=== PATIENT | female | born 1955 | race African-American/Black ===

== ENCOUNTER 2019-01-02 05:58 | Day surgery (SDC) | payer BC ==
[2018-12-29 12:03] VITALS: BMI 33.6
[2019-01-02] MEDS ORDERED: MIDAZOLAM HCL 2 MG/2 ML SINGLE DOSE VIAL ONE (07:09)
[2019-01-02] MEDS ORDERED: ePHEDrine SULFATE 50 MG/1 ML AMPULE ONE (07:09)
[2019-01-02] MEDS ORDERED: PROPOFOL 20 ML ONE ×4 (07:09)
[2019-01-02] MEDS ORDERED: SUCCINYLCHOLINE CHLORIDE 200 MG/10 ML VIAL ONE (07:09)
[2019-01-02] MEDS ORDERED: LIDOCAINE 1% P/F 10 MG/ML VIAL ONE (07:45)
[2019-01-02] MEDS ORDERED: BUPIVACAINE HCL/PF 2.5 MG/ML - 30 ML VIAL IJ ONE (07:45)
[2019-01-02] MEDS ORDERED: LIDOCAINE HCL 1% PRESERVATIVE FREE - 30ML VIAL ONE (07:46)
[2019-01-02] MEDS ORDERED: ceFAZolin SODIUM 1 GM VIAL IVPB ONE (08:15)
[2019-01-02] MEDS ORDERED: BUPIVACAINE HCL/PF (5 MG/ML) 30 ML VIAL IJ ONE (08:28)
[2019-01-02] MEDS ORDERED: BUPIVACAINE HCL/PF 0.25% (2.5MG/ML) 10 ML VIAL IJ ONE (08:28)
[2019-01-02] MEDS ORDERED: LIDOCAINE HCL 1%, 10 MG/ML (50 mL VIAL) IJ ONE ×2 (08:46)
[2019-01-02 09:53] VITALS: BP 137/86; PULSE 65; TEMP 98.4
[2019-01-02] MEDS ORDERED: ONDANSETRON 4 MG/2 ML VIAL IVPUSH PRN (14:10)
[2019-01-02] MEDS ORDERED: oxyCODONE HCL 5 MG TABLET PO PRN ×2 (14:10)
[2019-01-02] MEDS ORDERED: LACTATED RINGERS SOLUTION 1,000 ML IV SCH (14:15)
--- NOTE | 2019-01-03 09:01 | OP ---
DATE OF OPERATION: 01/02/2019 SURGEON: Rachel Glynn MD ASSISSTANT: JAVIER Tomas PREOPERATIVE DIAGNOSIS: Left carpal tunnel syndrome. POSTOPERATIVE DIAGNOSIS: Left carpal tunnel syndrome. PROCEDURE: Left carpal tunnel release (CBT code 25048). FINDINGS: transcarpal ligament impinging upon the median nerve. DESCRIPTION OF PROCEDURE: Under sterile conditions, the upper extremity was prepped and draped in a sterile fashion. Incision was made along the longitudinal portion of the carpal tunnel. A longitudinal incision was made along the proximal portion of the palm, following the palm crease. This was taken down to the transcarpal ligament, which was released initially with scalpel and then extended proximally and distally using blunt tenotomy scissors. The median nerve was identified and completely released from impingement by the transcarpal ligament. The wound was then irrigated with copious amounts of irrigation. Skin was closed with 5-0 nylon in single interrupted sutures. The PA listed above was present and assisted at surgery. Their presence was absolutely medically necessary for the completion of the procedure. They helped hold the arthroscopy, pass instruments (and implants when indicated) and the procedure could not have been completed without their assistance. RACHEL GLYNN M.D. [id number]
== END 2019-01-02 09:45 | disposition home or self-care (01) ==
LOC: FASU 05:58
PROVIDERS: ATTEND Orthopaedic Surgery
PROC: 01N50ZZ Release Median Nerve, Open Approach (ICD-10-PCS; principal; 2019-01-02 07:30)
DX: G56.02 Carpal tunnel syndrome, left upper limb (principal)

== ENCOUNTER 2019-06-04 07:20 | Day surgery (SDC) | payer BC ==
[2019-06-01 11:36] VITALS: BMI 33.6
[2019-06-04] MEDS ORDERED: BUPIVACAINE HCL/PF 2.5 MG/ML - 30 ML VIAL IJ ONE (09:38)
[2019-06-04] MEDS ORDERED: DEXAMETHASONE SOD PHOSPHATE 4 MG/1 ML VIAL ONE (09:50)
[2019-06-04] MEDS ORDERED: ONDANSETRON 4 MG/2 ML VIAL ONE ×2 (09:50→10:58)
[2019-06-04] MEDS ORDERED: MIDAZOLAM HCL 2 MG/2 ML SINGLE DOSE VIAL ONE (09:51)
[2019-06-04] MEDS ORDERED: PROPOFOL 20 ML ONE (09:51)
[2019-06-04] MEDS ORDERED: oxyCODONE HCL 5 MG TABLET PO PRN (10:29)
[2019-06-04] MEDS ORDERED: ONDANSETRON 4 MG/2 ML VIAL IVPUSH PRN (10:29)
[2019-06-04] MEDS ORDERED: LACTATED RINGERS SOLUTION 1,000 ML IV SCH (10:30)
--- NOTE | 2019-06-04 13:09 | OP ---
DATE OF OPERATION: 06/04/2019 Done at [facility] SURGEON: Jerel Glynn MD AREA COORDINATOR: JAVIER Lam PREOPERATIVE DIAGNOSES: 1. Right knee medial and lateral meniscal tear. 2. Right knee cartilage injury. 3. Right knee synovitis. POSTOPERATIVE DIAGNOSES: 1. Right knee medial and lateral meniscal tear. 2. Right knee cartilage injury. 3. Right knee synovitis. PROCEDURE: 1. Right knee arthroscopy with partial meniscectomy medial and lateral meniscus, CPT code 97195. 2. Right knee arthroscopy with chondroplasty and abrasion-plasty, CPT code 98960. 3. Right knee arthroscopy with synovectomy, CPT code 49450. FINDINGS: 1. Medial meniscus [id number]-ot-oesnclyfo horn tear posterior 07/17. 2. Lateral meniscus central body tear. 3. Synovitis patellofemoral medial and lateral notch area. 4. Central grade 2 cartilage injury medial femoral condyle 4 cm x 2 cm. 5. ACL and PCL intact. 6. Anterior grade 2-3 cartilage injury central and anterolateral tibial plateau 6 cm x 1 cm. 7. Central grade 2 cartilage injury to patella with grade 2-4 changes patellofemoral trochlea and anterior grade 4 changes patellofemoral trochlea at site of plica adhesion. PROCEDURE: Informed consent was obtained. The patient came to the operating room, where the lower extremity was prepped and draped in a sterile fashion. A tourniquet was placed on the upper thigh, but not inflated. Using standard arthroscopic technique, a lateral incision and portal was made to allow for introduction of the camera into the suprapatellar bursa. This was then taken to the medial joint line, where under direct visualization, a medial incision and portal was made. Excessive synovium noted in the medial, lateral and patellofemoral and notch area was removed by an upbiter, shaver and Bovie cautery. This was found to bring in inflammatory tissue into the joint surface, a source of pain and dysfunction. Probing of the medial and lateral meniscus found tears, as described in the findings. These were removed with the upbiter and shaver and taken back to a stable rim. Grade 2 to 3 degenerative changes were treated with a chondroplasty, removing all flaking surfaces with low-setting Bovie along the periphery to prevent further flaking. Grade 4 changes, as noted, were treated with an abrasoplasty, creating a bleeding surface at the bone/cartilage interface. Aggressive debridement with shaver/clotilde created bleeding surface. Micro fracture also done when indicated in findings. All areas of the knee were once again reexamined. The knee was then drained and a single suture was placed in all portals. A sterile dressing was placed and the patient was transferred to the recovery room without complication. The PA listed above was present and assisted at surgery. Their presence was absolutely medically necessary for the completion of the procedure. They helped hold the arthroscopy, pass instruments (and implants when indicated) and the procedure could not have been completed without their assistance. JEREL GLYNN M.D. [id number]
[2019-06-04 13:40] VITALS: TEMP 98.1
[2019-06-04 13:47] VITALS: BP 132/76; PULSE 80
--- NOTE | 2019-06-08 17:05 | PATH ---
Surgical Pathology Report Patient Name: NANCY CHILDRESS Med. Rec. #: [id number] /Age/Gender: 1955 (Age: 63) / F Account: [id number] Location: [facility] AMBULATORY Taken: 06/04/2019 Received: 06/04/2019 Reported: 06/08/2019 Physicians: Jerel Arauz M.D. Specimen(s) Received RIGHT KNEE SHAVINGS Clinical History Internal derangement right knee Final Diagnosis RIGHT KNEE SHAVINGS: FRAGMENTS OF FIBROSYNOVIAL AND CARTILAGINOUS TISSUE WITH FOCAL DEGENERATIVE CHANGE AND FIBROSIS. Electronically Signed Rylee Partida M.D. Gross Description Received in formalin, labeled "right knee shaving," is a 4.0 x 3.2 x 0.3 cm. aggregate of garrett-yellow soft tissue fragments. A contact center representative portion is submitted in one cassette. 06/05/201906/05/2019
== END 2019-06-04 13:15 | disposition home or self-care (01) ==
LOC: FASU 07:20
PROVIDERS: ATTEND Orthopaedic Surgery
PROC: 0SBC4ZZ Excision of Right Knee Joint, Percutaneous Endoscopic Approach (ICD-10-PCS; 2019-06-04)
PROC: 0SBC4ZZ Excision of Right Knee Joint, Percutaneous Endoscopic Approach (ICD-10-PCS; 2019-06-04)
PROC: 0SBC4ZZ Excision of Right Knee Joint, Percutaneous Endoscopic Approach (ICD-10-PCS; principal; 2019-06-04 10:10)
DX: S83.241A Other tear of medial meniscus, current injury, right knee, initial encounter (principal); S83.281A Other tear of lateral meniscus, current injury, right knee, initial encounter; S83.8X1A Sprain of other specified parts of right knee, initial encounter; M65.861 Other synovitis and tenosynovitis, right lower leg; X58.XXXA Exposure to other specified factors, initial encounter; Y93.9 Activity, unspecified; Y92.9 Unspecified place or not applicable
CPT/HCPCS: 88304-TC; 94760

== ENCOUNTER → 2020-03-11 | Day surgery (SDC) | payer BC ==
[2020-03-04 11:17] VITALS: BMI 34.3
[~2020-03-11] MED LIST: ACETAMINOPHEN 325 MG TABLET (FP) PO PRN; BUPIVACAINE HCL/PF 0.25% (2.5MG/ML) 10 ML VIAL IJ ONE; BUPIVACAINE HCL/PF 0.25% (2.5MG/ML) 10 ML VIAL ONE; DEXAMETHASONE SOD PHOSPHATE 4 MG/1 ML VIAL ONE; KETOROLAC TROMETHAMINE 30 MG/1 ML VIAL ONE; LACTATED RINGERS SOLUTION 1,000 ML IV SCH; LIDOCAINE HCL 1%, 10 MG/ML (20ML VIAL) ID ONE; LIDOCAINE HCL 1%, 10 MG/ML (20ML VIAL) ONE; LIDOCAINE HCL/PF 2% SDV 5ML VIAL ONE; MIDAZOLAM HCL 2 MG/2 ML SINGLE DOSE VIAL ONE; ONDANSETRON 4 MG/2 ML VIAL IVPUSH PRN; ONDANSETRON 4 MG/2 ML VIAL ONE; PROPOFOL 20 ML ONE; SUCCINYLCHOLINE CHLORIDE 200 MG/10 ML SYRINGE ONE; ceFAZolin SODIUM 1 GM VIAL ONE; oxyCODONE HCL 5 MG TABLET PO PRN
[2020-03-11 09:10] VITALS: BP 135/84; PULSE 74; TEMP 98.1
--- NOTE | 2020-03-11 12:36 | OP ---
DATE OF OPERATION: 03/11/2020 LOCATION: [facility]. SURGEON: Rachel Glynn MD SAW CLEANER: JAVIER Tomas PREOPERATIVE DIAGNOSIS: Right carpal tunnel syndrome. POSTOPERATIVE DIAGNOSIS: Right carpal tunnel syndrome. PROCEDURE: Right carpal tunnel release. FINDINGS: 1. Thickened transcarpal ligament impinging upon the median nerve. 2. Thickened scar tissue in central portion of nerve and epineurium with thickened scar tissue along the central portion and damage to the central portion of the nerve. PROCEDURE: Under sterile conditions, the right upper extremity was prepped and draped in a sterile fashion. Incision was made along the longitudinal portion of the carpal tunnel. A longitudinal incision was made along the proximal portion of the palm, following the palm crease. This was taken down to the transcarpal ligament, which was released initially with scalpel and then extended proximally and distally using blunt tenotomy scissors. The median nerve was identified and completely released from impingement by the transcarpal ligament. The wound was then irrigated with copious amounts of irrigation. Skin was closed with 5-0 nylon in single interrupted sutures. The PA listed above was present and assisted at surgery. Their presence was absolutely medically necessary for the completion of the procedure. They helped hold the arthroscope, pass instruments (and implants when indicated) and the procedure could not have been completed without their assistance. RACHEL GLYNN M.D. [id number]
== END | disposition home or self-care (01) ==
LOC: FASU 05:49
PROVIDERS: ATTEND Orthopaedic Surgery
PROC: 01N50ZZ Release Median Nerve, Open Approach (ICD-10-PCS; principal; 2020-03-11 07:45)
DX: G56.01 Carpal tunnel syndrome, right upper limb (principal)